=== PATIENT | female | born 1975 | race Caucasian/White ===

== ENCOUNTER 2022-12-31 14:08 | Inpatient (IN) | payer BC, SELFPAY ==
[2022-12-31] VITALS (40 sets, daily range): BP systolic 120–224; BP diastolic 78–163; PULSE 84–113; RESP 11–23; TEMP 36.4–36.6; O2SAT 81–100; BMI 29.3
--- NOTE | ~2022-12-31 | CT_ITS ---
EXAMINATION: CT lumbar spine wo con DATE: 01/01/2023 20:30 INDICATION: PAIN . TECHNIQUE: Computed tomography (CT) of the lumbar spine was performed without intravenous contrast. A utomated exposure control and iterative reconstruction technique were employed. The dose-length produ ct was 1655.27 mGy-cm. COMPARISON: None. FINDINGS: Mild lumbar scoliosis. 5 nonrib-bearing lumbar-type vertebral bodies. Pedicles intact. 3 mm anterolisthesis at L4-5, otherwise normal vertebral body alignment. Vertebral body heights preserved . Multilevel disc space narrowing and marginal osteophytosis, multilevel vacuum phenomenon, and signi ficant endplate sclerosis at L3-4 and L5-S1. Multilevel facet sclerosis and hypertrophy in the lower lumbar spine. Severe bilateral neural foraminal narrowing at L5-S1. Severe central canal narrowing at L2-3 and L3-4. IMPRESSION: No acute fracture or traumatic malalignment in the lumbar spine. Severe central canal narrowing at L2 -3 and L3-4. Severe bilateral neural foraminal narrowing at L5-S1. Multilevel severe degenerative dis c disease. Moderate lower lumbar facet arthropathy. Reviewed, dictated and finalized at location K. IMPRESSION: No acute fracture or traumatic malalignment in the lumbar spine. Severe central canal narrowing at L2-3 and L3-4. Severe bilateral neural foraminal narrowing at L5-S1. Multilevel severe degenerative disc disease. Moderate lower lumbar fa cet arthropathy.
--- NOTE | ~2022-12-31 | CT_ITS ---
EXAMINATION: CTA chest abdomen pelvis DATE: 12/31/2022 14:40 INDICATION: Chest and abdominal pain. TECHNIQUE: Computed tomographic angiography (CTA) of the chest, abdomen, and pelvis was performed wit h 100 mL Omnipaque-350 intravenous contrast. Automated exposure control and iterative reconstruction technique were employed. The dose-length product was 1655.27 mGy-cm. Maximum intensity projection 3D- reconstructions of the aorta and other arteries were constructed by the technologist on a separate wo rkstation. COMPARISON: CT abdomen and pelvis 06/16/2017 FINDINGS: CHEST CTA: The lungs demonstrate smooth septal thickening, consistent with mild pulmonary edema. There is mild a telectasis bilaterally. There is mild scarring in paraspinal right lower lobe. No pleural effusion. T here are nodules in the thyroid measuring up to 2.5 cm on the right. There is left atrial enlargement of the heart. There are coronary artery calcifications. No pericardial effusion. There is a small sl iding hiatal hernia. There is mild aortic atherosclerosis. There is ectasia of ascending aorta measur ing 4.5 cm. No dissection. There is mild thoracic spondylosis. ABDOMEN AND PELVIS CTA: There is pneumobilia in left hepatic lobe, likely secondary to sphincterotomy. There are changes of c holecystectomy. The spleen is normal. Pancreas divisum is noted. The adrenal glands are normal. There are cysts in the kidneys measuring up to 22 mm on the left. There are no dilated loops of bowel. The appendix is normal. There is a left supraumbilical ventral hernia containing fat. There are no patho logically enlarged lymph nodes. There is no free intraperitoneal fluid. There is moderate stenosis of celiac axis secondary to median arcuate ligament compression. There is no significant stenosis of leigh perior mesenteric artery, the renal arteries, or inferior mesenteric artery. There is mild aortic ath erosclerosis. No aneurysm or dissection. There is severe lumbar spondylosis. IMPRESSION: 1. Mild pulmonary edema. 2. Ectasia of ascending aorta measuring 4.5 cm. 3. Left supraumbilical ventral hernia containing fat. Reviewed, dictated and finalized at location A.
--- NOTE | ~2022-12-31 | XR_ITS ---
EXAMINATION: XR shoulder RT min 2V INDICATION: Shoulder pain TECHNIQUE: Four views of the right shoulder are submitted. COMPARISON: None FINDINGS: Normal alignment. No fracture. There is mild osteoarthritis of the acromioclavicular and gl enohumeral joints. Soft tissues are unremarkable. Pulmonary edema is noted. IMPRESSION: 1. Mild osteoarthritis without acute osseous abnormality. Reviewed, dictated and finalized at location F.
--- NOTE | ~2022-12-31 | XR_ITS ---
XR chest 1V portable DATE: 12/31/2022 14:49 INDICATION: Chest pain, shortness of breath TECHNIQUE: 2 portable supine AP views on 12/31/2022 at 1446 hours COMPARISON: 12/31/2022 CTA chest abdomen FINDINGS: There is pulmonary vascular redistribution. There are central pulmonary infiltrates, partic ularly in the upper lobes, suggesting pulmonary edema. Sunitha B-lines are noted, consistent with pulm onary interstitial edema. Heart size appears within normal range. No pleural effusion or pneumothorax is detected. IMPRESSION: Pulmonary vascular redistribution, pulmonary edema Reviewed, dictated and finalized at location B.
--- NOTE | ~2022-12-31 | CT_ITS ---
EXAMINATION: CT cervical spine wo con DATE: 01/01/2023 17:02 INDICATION: Neck pain TECHNIQUE: Computed tomography (CT) of the cervical spine was performed without intravenous contrast. Automated exposure control and iterative reconstruction technique were employed. The dose-length pro duct was 470.32 mGy-cm. COMPARISON: CTA chest abdomen pelvis. FINDINGS: Vertebral Body Alignment: Trace anterolisthesis at C3-4. . Craniocervical and atlantoaxial alignment: Moderate degenerative change. Alignment intact. Osseous structures/fracture: No evidence of a lytic or blastic process in the visualized spine. No e vidence of acute fracture. . Cervical soft tissues: The paraspinal soft tissues planes are maintained. Thyroid nodules. Septal thi ckening in the lung apices. Degenerative changes: Multilevel disc space narrowing and marginal osteophytosis, moderate at C4-5 an d C5-6. Mild right neural foraminal narrowing at C5-6. Mild central canal narrowing at C4-5. Multilev el facet hypertrophy and sclerosis. IMPRESSION: No acute fracture or traumatic malalignment in the cervical spine. Cervical spondylosis. Multilevel m ild facet arthropathy. Reviewed, dictated and finalized at location K. IMPRESSION: No acute fracture or traumatic malalignment in the cervical spine. Cervical spo ndylosis. Multilevel mild facet arthropathy.
--- NOTE | 2022-12-31 14:14 | ECG_ITS ---
Measurements Intervals [place] Rate: 96 P: 12 NC: 177 QRS: -55 QRSD: 125 T: 32 QT: 364 QTc: 461 Interpretive Statements SINUS RHYTHM LEFT ANTERIOR FASCICULAR BLOCK POSSIBLE LEFT VENTRICULAR HYPERTROPHY INFERIOR INFARCT, AGE INDETERMINATE BASELINE ARTIFACT- I, III, AVR, AVL ABNORMAL ECG NO PREVIOUS ECG AVAILABLE FOR COMPARISON Electronically Signed On 12-31-2022 15:00:01 CDT by Jairo Molina D.O.
--- NOTE | 2022-12-31 14:29 | ED.CHESTPAIN ---
HPI - Chest Pain General Chief Complaint: Chest Pain Stated Complaint: right side chest to waist pain Time Seen by Provider: 12/31/22 14:14 History of Present Illness HPI narrative: 47-year-old female history of hypertension, CAD with multiple stents, diabetes, and hyperlipidemia presents to the emergency room via EMS for multiple complaints. Patient states she woke up this morning not feeling well, citing that she was nauseated and began experiencing right-sided chest pain that radiated up into her neck. Describes the pain as a sharp and stabbing pain, feels like somebody is tearing her insides. Patient also endorses left chest pain that is aggravated with movement and palpation. Patient denies recent illness. 325 mg of aspirin were given prior to arrival. Patient also reports history of spinal stenosis for which she takes Percocet for Related Data Home Medications Medication Instructions Recorded Confirmed carvedilol 25 mg tablet 25 mg PO BID 07/09/21 04/01/22 clopidogrel 75 mg tablet 75 mg PO DAILY 07/09/21 04/01/22 lisinopril 40 mg tablet 40 mg PO DAILY 07/09/21 04/01/22 empagliflozin 10 mg tablet 10 mg PO DAILY 02/02/22 04/01/22 (Jardiance) atorvastatin 80 mg tablet 80 mg PO DAILY 03/16/22 04/01/22 cholecalciferol (vitamin D3) 1,250 1,250 mcg PO WEEKLY 03/16/22 04/01/22 mcg (50,000 unit) capsule aspirin 81 mg tablet,delayed 81 mg PO DAILY 04/01/22 04/01/22 release (Adult Low Dose Aspirin) Allergies Allergy/AdvReac Type Severity Reaction Status Date / Time morphine Allergy Mild Nausea and Verified 04/01/22 15:20 Vomiting latex Allergy Unknown Itchy Verified 04/01/22 15:20 OXYCODONE HCL Allergy Unknown Itchy Uncoded 04/01/22 15:20 Review of Systems Review of Systems: CONSTITUTIONAL: Denies fever, chills, or sweats. EYES: Denies visual changes, redness, or discharge. ENT: Denies rhinorrhea, congestion, sore throat, or otalgia. CARDIOVASCULAR: Per HPI reports chest pain RESPIRATORY: Denies cough or dyspnea. GASTROINTESTINAL: Per HPI reports nausea vomiting GENITOURINARY: Denies dysuria or hematuria. SKIN: Denies rash or itching. MUSCULOSKELETAL: Denies back pain, joint pain, or myalgia. NEUROLOGIC: Denies headache, numbness, dizziness, or weakness. PSYCHIATRIC: Denies anxiety or depression. [facility] Past Medical History Medical History Anxiety Arthritis CAD (coronary artery disease) Chest pain Crying Diabetes Difficulty breathing Difficulty sleeping Heartburn History of heart attack Hot flashes HTN (hypertension) Irritable Joint pain Leg pain Numbness Palpitations Pilonidal cyst Sadness Seizure disorder Snoring Spinal stenosis Tiredness Urinary incontinence Vomiting Weakness Surgical History Surgical History delivery delivered x 2 H/O excision of mass left thigh 2003 [facility] H/O: hysterectomy 2014 History of angioplasty January 2019 and January 2021 History of dilation and curettage 1992- [facility] Family History Family History Father Alcoholic Lung cancer Hypertension Depression Anxiety Heart disease Mother Alcoholic Hypertension Depression Anxiety Heart disease Sibling Alcoholic Heart disease Grandparent Diabetes mellitus Hypertension Heart disease Grandparent Alcoholic Hypertension Heart disease Social History Social History Social History: caffeine use: 54 oz soda daily Smoking packs per day: 0.5 Smoking cigarettes per day: 10.0 Years smoked: 30 Smoking pack-years: 15.00 Smoking status: Current every day smoker Tobacco type: cigarettes Second hand tobacco smoke exposure: Yes Alcohol intake: never Substance use: current Substance use type: marijuana Other s
[2022-12-31] MEDS: ONDANSETRON INJ 4 MG/2 ML VIAL IV PUSH ×3 (14:30→20:24)
[2022-12-31] MEDS: HYDROmorphone HCL INJ (*CRX) 1 MG/ML SYR IV PUSH ×3 (14:30→23:43)
[2022-12-31] MEDS: SODIUM CHLORIDE 0.9% IV 1,000 ML 999 ML IV CONT (14:30)
[2022-12-31 14:33] LABS: Basophils Percent Auto 0.2 % (0.2-1.2); Eosinophils Absolute Auto 0.1 K/mm3 (0-0.3); Eosinophils Percent Auto 0.8 % (0-4.4); Hematocrit 48.8 % (37.0-47.0); Hemoglobin 16.2 g/dL (12.0-15.0); Immature Granulocyte Absolute 0.06 K/mm3 (0.00-0.031); Immature Granulocyte Percent A 0.5 % (0-0.5); Lymphocytes Absolute Auto 1.73 K/mm3 (0.9-3.2); Lymphocytes Percent Auto 14.6 % (18.3-44.2); Mean Corpuscular HGB Conc 33.2 g/dl (32-36); Mean Corpuscular Hemoglobin 31.1 pg (26-34); Mean Corpuscular Volume 93.7 fl (80-100); Mean Platelet Volume 10.1 fl (7.4-10.4); Monocytes Absolute Auto 0.7 K/mm3 (0.1-0.6); Monocytes Percent Auto 5.6 % (2.6-8.5); Neutrophils Absolute Auto 9.3 K/mm3 (1.3-6.7); Neutrophils Percent Auto 78.3 % (45.5-73.1); Platelet Count Result 275 k/mm3 (150-375); Red Blood Count 5.21 M/mm3 (4.2-5.4); Red Cell Distribution Width 13.1 % (11.5-14.5); White Blood Count 11.9 K/mm3 (4.5-10.0)
[2022-12-31 14:34] LABS: Estimated CRCL calculation 98 ml/min; Estimated Glomerular Filt Rate > 60
[2022-12-31 14:49] LABS: Prothrombin Time 12.7 Seconds (11.1-14.7)
[2022-12-31 14:50] LABS: Partial Thromboplastin Time 31.1 SECONDS (22.3-36.8)
--- NOTE | 2022-12-31 14:58 | ECG_ITS ---
Measurements Intervals [place] Rate: 107 P: 43 RI: 140 QRS: -53 QRSD: 110 T: 72 QT: 347 QTc: 464 Interpretive Statements SINUS TACHYCARDIA POSSIBLE LEFT ATRIAL ENLARGEMENT LEFT ANTERIOR FASCICULAR BLOCK LEFT VENTRICULAR HYPERTROPHY AND ST-T CHANGE INFERIOR INFARCT, AGE INDETERMINATE ABNORMAL ECG COMPARED TO ECG 12/31/2022 14:13:13 SINUS TACHYCARDIA NOW PRESENT Electronically Signed On 12-31-2022 15:00:47 CDT by Jairo Molina D.O.
[2022-12-31] MEDS: LABETALOL HCL INJ 100 MG/20 ML VIAL 20 MG IV PUSH ×3 (15:02→23:41)
[2022-12-31] MEDS: fentaNYL CITRATE INJ (*CRX) 100 MCG/2 ML VIAL 50 MCG IV PUSH ×2 (15:02→16:11)
[2022-12-31] MEDS: NITROGLYCERIN OINTMENT 1 INCH DOSE TRANSDERM (15:04)
[2022-12-31 15:28] LABS: Alveolar/Arterial O2 Gradient 499.9 mmHg; Base Excess ABG -2.6 mEq/l (+/-2.0); Fractional Inspired Oxygen 100 %; HCO3 ABG 24.6 mEq/l (22.0-26.0); Oxygen Content ABG 23.5 %vol (16.0-22.0); Oxygen Saturation ABG 98.9 % (95.0-100.0); Oxyhemoglobin 97.1 % THb (90.0-100.0); PCO2 ABG 51.1 mmHg (35.0-45.0); PO2 FiO2 Ratio Arterial Blood 1.62 %
[2022-12-31 15:30] LABS: Device NON-INVASIVE VENT; Modified Allen's Test Pass; Site Drawn LEFT RADIAL
[2022-12-31 15:32] LABS: Non-Invasive Expiratory Pressure 8 CMH2O; Non-Invasive Inspiratory Pressure 16 CMH2O; Non-Invasive Vent Rate 4 /MIN
[2022-12-31] MEDS: diazePAM INJ (*CRX) 10 MG/2 ML SYRINGE 5 MG IV PUSH (15:36)
[2022-12-31 15:54] LABS: Alanine Aminotransferase 18 U/L (6-35); Albumin Level 4.3 g/dL (3.5-5.1); Alkaline Phosphatase 120 U/L (38-126); Anion Gap 11 mmol/L (8-16); Aspartate Amino Transferase 21 U/L (14-36); Bilirubin,Total 0.6 mg/dL (0.2-1.3); Blood Urea Nitrogen 8 mg/dL (7-17); Calcium 8.3 mg/dL (8.4-10.2); Carbon Dioxide 22 mmol/L (22-30); Chloride 105 mmol/L (98-107); Estimated CRCL calculation 113 ml/min; Estimated Glomerular Filt Rate > 60; Glucose 232 mg/dL (65-110); Lipase 93 U/L (23-300); Potassium 4.2 mmol/L (3.4-5.0); Sodium 138 mmol/L (137-145)
[2022-12-31] MEDS: FUROSEMIDE INJ 40 MG/4 ML VIAL IV PUSH (16:03)
[2022-12-31 16:05] LABS: Troponin I < 0.012 ng/mL (0.000-0.034)
[2022-12-31 16:14] LABS: Lactic Acid Reflex 0.9 mmol/L (0.7-2.0)
[2022-12-31 16:30] LABS: NT Pro B Type Natriuretic Pept 1080 pg/mL (19.9-100)
[2022-12-31 16:47] LABS: Appearance Urine Clear (Clear); Bilirubin Urine Negative (Negative); Blood Urine Negative (Negative); Color Urine Yellow (Yellow); Glucose Urine UA 3+ mg/dL (Negative); Ketones Urine Negative (Negative); Leukocyte Esterase Ur Negative LEU/UL (Negative); Nitrate Urine Negative (Negative); Protein Urine Negative (Negative); Specific Grav Ur 1.014 (1.001-1.035); Urobilinogen Urine 0.2 mg/dL (<2.0)
[2022-12-31 16:50] LABS: Add Urine Microscopic? NO
[2022-12-31 16:59] LABS: Amphetamine Screen Urine Negative (Negative); Barbiturate Screen Urine Negative (Negative); Benzodiazepines Screen Urine Negative (Negative); Cannabinoid Screen Urine Positive (Negative); Cocaine Screen Urine Negative (Negative); Methadone Screen Urine Negative (Negative); Opiate Screen Urine Negative (Negative); Phencyclidine Screen Urine Negative (Negative)
[2022-12-31] MEDS: PROMETHAZINE HCL 25 MG/ML AMPUL (17:03)
[2022-12-31] MEDS: niCARdipine 20 MG/200 ML 20 MG/200 ML BAG 50 MG IV CONT (17:04)
[2022-12-31] MEDS: HYDROmorphone HCL INJ (*CRX) 1 MG/ML SYR 0.5 MG IV PUSH ×2 (17:10→20:12)
[2022-12-31 17:20] LABS: Glucose Point of Care 247 mg/dl (65-105)
[2022-12-31 17:29] LABS: Troponin I < 0.012 ng/mL (0.000-0.034)
--- NOTE | 2022-12-31 17:35 | PM.IMHP ---
H&P: HPI History of Present Illness Date/Time: 12/31/22 17:35 Chief Complaint: Pain Narrative: This is [age]-year-old female patient has a history of hypertension and coronary artery disease with stents. She also has diabetes and hyperlipidemia. The patient came to the emergency room via EMS with multiple complaints. The patient will cope this morning she was nauseated. The patient was having right-sided chest pain that went down her arm and radiated to her neck. She had sharp stabbing pain. She felt like something was tearing her inside. The patient is on Plavix at home. She received 325 mg of aspirin prior to arrival to the emergency room. The patient has spinal stenosis and takes pain medication. However her drugs tox screen was only positive for benzos. Her white count 11.9. H&H is 16.2 and 48.8. Her D-dimer was found to be 0.70. ABGs pH 7.30 CO2 was 51.1 PO2 was 162.0. The patient initially was placed on a BiPAP machine 10/8 50%. Patient became agitated and wanted ice chips. She pulled off her BiPAP. She was then placed on oxygen at 2 L per nasal cannula. The patient became very agitated and her blood pressure went up to 209/132. The patient was given multiple medications in the emergency room she was given Valium, IV Lasix, fentanyl, Zofran, Dilaudid, and labetalol. The patient come down and her blood pressure came down to 120/78 after she had been on the nicardipine drip. The financial services auditor has been notified. In agreed to the consult. Once the patient got up to ICU her blood pressure was normal and she was taken off the nicardipine drip. Patient began to be restless and was thrashing around in the bed. Her blood pressure became elevated again and she was complaining of some discomfort. Her chest abdomen pelvis CTA was read as mild pulmonary edema, ectasias of ascending aorta measuring 4.5 cm left supraumbilical ventral hernia containing fat. Chest x-ray was read as pulmonary vascular redistribution pulmonary edema. Right shoulder x-ray shows mild osteoarthrosis without acute osseous abnormality. Her blood sugar was in the 200s. Troponin was negative x2. BNP 1080. EKG was read as sinus tachycardia passable left atrial enlargement. The patient is being admitted to observation status on the date of service of 12/31/2022. Review of Systems Review of Systems: All systems reviewed & are unremarkable except as noted in HPI and below Constitutional: Constitutional: Reports as per HPI and Reports no additional constitutional complaints Eyes: Eyes: Reports as per HPI and Reports no additional eye complaints ENT: Reports system reviewed and no additional complaints, except as documented and Reports Normal hearing present Cardiovascular: Cardiovascular: Reports no additional cardiovascular complaints Respiratory: Respiratory: Reports no additional respiratory complaints and Reports no additional respiratory complaints Gastrointestinal: Gastrointestinal: Reports as per HPI and Reports no additional gastrointestinal complaints Musculoskeletal: Musculoskeletal: Reports no additional musculoskeletal complaints Integumentary/Breasts: Skin/Breast: Reports system reviewed and no additional complaints, except as docu and Reports as per HPI Neurologic: Reports system reviewed and no additional complaints, except as documented, Reports as per HPI and Reports Normal hearing present Psychiatric: Psychiatric: Reports no additional psychiatric complaints and Reports as per HPI Endocrine: Endocrine: Reports no additional endocrine complaints Hematologic/Lymphatic: Hematologic/Lymphatic: Reports no additional hematologic/lymphatic complaints Allergic/Immunologic: Allergic/Immunologic: Reports no additional allergic/immunologic complaints [facility] Past Medical History Medical History Anxiety Arthritis CAD (coronary artery disease) Chest pain CHF (congestive heart failure), NYHA class
--- NOTE | 2022-12-31 18:41 | PC.NURSE ---
1804- Pt took BIPAP off, Siddharth LEES at bedside, aware. Pt requesting ice chips, given to pt by Siddharth Santiago. Pt placed on 2LNC by Siddharth Santiago. RN called to bedside, pt requesting to leave ama. Dr. Manjarrez to bedside to discuss risks of leaving ama. Pt decided to stay for ICU admission at this time.
--- NOTE | 2022-12-31 18:45 | ADMGEN ---
This patient, Consuelo Calix, was admitted to Intensive Care Unit-4 at 1830. Patient/family oriented to hospital policies and general routines including ID bracelet, bed and alarms, visiting hours, pain management, procedures, bathroom and other care routines, personal items, smoking policy, room service/diet, and visiting hours. Information on how to activate the Rapid Response Team has been discussed. Patient/Family are encouraged to report perceived risks to care and to ask questions if they do not understand what they are told or what they should do.
--- NOTE | 2022-12-31 19:06 | PCRCNOTE ---
183 PT. WAS TRANSPORTED BY Lm FRANCO AND Lm NICHOLSON TO THE ICU ON A NASAL CANNULA AFTER PT. RIPPED OFF BIPAP MASK.
[2022-12-31 20:20] LABS: Troponin I < 0.012 ng/mL (0.000-0.034)
[2022-12-31 20:29] LABS: Glucose Point of Care 239 mg/dl (65-105)
[2022-12-31] MEDS: ALPRAZolam (*CRX) 0.25 MG TABLET 0.75 MG PO (20:38)
[2022-12-31] MEDS: lisinopriL 20 MG TABLET 40 MG PO (22:05)
[2022-12-31] MEDS: carvediloL 25 MG TABLET PO (22:06)
[2022-12-31] MEDS: ROSUVASTATIN 10 MG TABLET PO (22:09)
[2022-12-31] MEDS: CYCLOBENZAPRINE HCL 10 MG TABLET PO (22:09)
[2022-12-31] MEDS: ALPRAZolam (*CRX) 0.25 MG TABLET PO (22:50)
[2023-01-01] VITALS (14 sets, daily range): BP systolic 95–164; BP diastolic 60–108; PULSE 63–82; RESP 12–19; TEMP 36.4–36.7; O2SAT 91–100; BMI 29.3
--- NOTE | 2023-01-01 | ECHO_ITS ---
Patient Info Name: Consuelo Calix Age: 47 years : 1975 Gender: Female Ht: 68 in Wt: 192 lbs BSA: 2.07 m2 HR: 69 bpm BP: 95 / 70 mmHg Technical Quality: Good Exam Date: 01/01/2023 10:22 AM Exam Location: [facility] Patient Status: Inpatient Admit Date: 12/31/2022 Staff Ordering Physician: Paula Santiago NP [place] Facilitator: Dede Corrales RDCS Attending Provider: Carlos Pratt MD Referring Physician: Jack AGUSTIN; Exam Type: CA echo doppler color flow Study Info Indications J81.0 - Acute pulmonary edema Complete two-dimensional, color flow and Doppler transthoracic echocardiogram is performed. Summary 1. Complete two-dimensional, color flow and Doppler transthoracic echocardiogram is performed. 2. Borderline LV enlargement, mild LVH. Normal LV systolic function, ejection fraction about 65%; diastolic dysfunction is present. Mild left atrial enlargement. Normal mitral valve structure, mild mitral regurgitation. Normal aortic valve structure, no hemodynamically significant stenosis; mild aortic regurgitation. Unable to assess RVSP due to inadequate TR jet. Sinus rhythm. Left Ventricle Left ventricular chamber dimension is mildly enlarged. Left ventricular systolic function is normal, estimated at 65-70%. There is mildly increased left ventricular wall thickness. The left ventricular diastolic function is abnormal. Right Ventricle Right ventricular chamber dimension is normal. Right ventricular systolic function is normal. Left Atria Left atrial chamber dimension is mildly enlarged. Right Atria Right atrial chamber dimension is normal. Aortic Valve The aortic valve is normal. There is no aortic valve stenosis. There is mild aortic valve regurgitation. Pulmonic Valve The pulmonic valve is not well visualized. Mitral Valve The mitral valve has thickened leaflets. There is mild mitral valve regurgitation. Tricuspid Valve The tricuspid valve leaflets are normal. Pericardium/Pleural The pericardium appears normal. Aorta The aortic root size at the sinus of Valsalva is normal. Left Ventricular Outflow Tract Name Value Normal LVOT 2D LVOT Diameter 2.3 cm LVOT Doppler LVOT Peak Gradient 3 mmHg LVOT Mean Gradient 2 mmHg LVOT VTI 19 cm LVOT VTI/AV VTI Ratio 0.7 LVOT Stroke Volume 80 ml LVOT CO 6.0 l/min LVOT CI 2.9 l/min/m2 Pulmonic Valve Name Value Normal PV Doppler PV Peak Gradient 2 mmHg Mitral Valve Name Value Normal
[2023-01-01 00:07] LABS: Troponin I < 0.012 ng/mL (0.000-0.034)
[2023-01-01] MEDS: ZOLPIDEM TARTRATE (*CRX) 5 MG TABLET 10 MG PO (00:54)
[2023-01-01] MEDS: ONDANSETRON INJ 4 MG/2 ML VIAL IV PUSH (00:55)
[2023-01-01 01:07] LABS: Glucose Point of Care 193 mg/dl (65-105)
[2023-01-01] MEDS: HYDROmorphone HCL INJ (*CRX) 1 MG/ML SYR IV PUSH ×5 (02:52→17:46)
[2023-01-01 05:42] LABS: Basophils Absolute Auto 0.1 K/mm3 (0.0-0.1); Basophils Percent Auto 0.4 % (0.2-1.2); Eosinophils Percent Auto 0.1 % (0-4.4); Hematocrit 48.4 % (37.0-47.0); Hemoglobin 15.7 g/dL (12.0-15.0); Immature Granulocyte Absolute 0.06 K/mm3 (0.00-0.031); Immature Granulocyte Percent A 0.4 % (0-0.5); Lymphocytes Absolute Auto 2.34 K/mm3 (0.9-3.2); Lymphocytes Percent Auto 17.4 % (18.3-44.2); Mean Corpuscular HGB Conc 32.4 g/dl (32-36); Mean Corpuscular Hemoglobin 31.5 pg (26-34); Mean Corpuscular Volume 97.2 fl (80-100); Mean Platelet Volume 9.5 fl (7.4-10.4); Monocytes Absolute Auto 0.7 K/mm3 (0.1-0.6); Monocytes Percent Auto 5.4 % (2.6-8.5); Neutrophils Absolute Auto 10.3 K/mm3 (1.3-6.7); Neutrophils Percent Auto 76.3 % (45.5-73.1); Platelet Count Result 236 k/mm3 (150-375); Red Blood Count 4.98 M/mm3 (4.2-5.4); Red Cell Distribution Width 13.2 % (11.5-14.5); White Blood Count 13.5 K/mm3 (4.5-10.0)
[2023-01-01 05:52] LABS: Lactic Acid Reflex 3.7 mmol/L (0.7-2.0)
[2023-01-01 05:56] LABS: Alanine Aminotransferase 20 U/L (6-35); Albumin Level 4.9 g/dL (3.5-5.1); Alkaline Phosphatase 98 U/L (38-126); Anion Gap 12 mmol/L (8-16); Aspartate Amino Transferase 20 U/L (14-36); Bilirubin,Total 0.7 mg/dL (0.2-1.3); Blood Urea Nitrogen 8 mg/dL (7-17); CRP 0.7 mg/dL (<1.0); Calcium 8.7 mg/dL (8.4-10.2); Carbon Dioxide 28 mmol/L (22-30); Chloride 102 mmol/L (98-107); Creatine Kinase 85 U/L (30-135); Estimated CRCL calculation 99 ml/min; Estimated Glomerular Filt Rate > 60; Glucose 175 mg/dL (65-110); Lipase 694 U/L (23-300); Magnesium 2.4 mg/dL (1.6-2.3); Potassium 4.1 mmol/L (3.4-5.0); Sodium 142 mmol/L (137-145)
[2023-01-01 06:27] LABS: Thyroid Stimulating Hormone Reflex 0.399 uIU/mL (0.465-4.68)
[2023-01-01 08:39] LABS: Reflex Lactic Acid Yes or No Add Lactic
[2023-01-01] MEDS: lisinopriL 20 MG TABLET 40 MG PO (09:21)
[2023-01-01] MEDS: ASPIRIN 81 MG ENTERIC TABLET PO (09:21)
[2023-01-01] MEDS: EMPAGLIFLOZIN 10 MG TABLET PO (09:22)
[2023-01-01] MEDS: ENOXAPARIN 40 MG/0.4 ML SYRINGE SUB-Q (09:22)
[2023-01-01] MEDS: FUROSEMIDE INJ 40 MG/4 ML VIAL 20 MG IV PUSH (09:22)
[2023-01-01] MEDS: ALPRAZolam (*CRX) 0.25 MG TABLET PO ×3 (09:25→17:45)
[2023-01-01 09:44] LABS: Glucose Point of Care 109 mg/dl (65-105)
[2023-01-01 09:47] LABS: Lactic Acid 2.6 mmol/L (0.7-2.0)
--- NOTE | 2023-01-01 09:47 | WPDCNINT ---
Assessment and Plan Assessment and plan (1) Hypertensive emergency: Code(s): I16.1 - Hypertensive emergency Status: Acute Assessment and Plan: Patient was started on nicardipine infusion which has been now weaned off Continue lisinopril and Coreg P.r.n. labetalol (2) Acute respiratory failure: Code(s): J96.00 - Acute respiratory failure, unspecified whether with hypoxia or hypercapnia Status: Acute Assessment and Plan: Secondary to pulmonary edema and COPD Now improved and on room air Lasix to be continued Bronchodilators ABG and chest x-ray reviewed Echo ordered (3) CHF (congestive heart failure), NYHA class I: Code(s): I50.9 - Heart failure, unspecified Status: Acute Assessment and Plan: Elevated BNP and CT shows pulmonary edema Check echo Lasix IV ordered On Jardiance (4) Pulmonary edema: Code(s): J81.1 - Chronic pulmonary edema Status: Acute Assessment and Plan: See above (5) Abnormal TSH: Code(s): R79.89 - Other specified abnormal findings of blood chemistry Status: Acute Assessment and Plan: TSH is low free T4 level is pending (6) Elevated lipase: Code(s): R74.8 - Abnormal levels of other serum enzymes Status: Acute Assessment and Plan: Lipase elevated No signs of pancreatic inflammation on the CT Patient currently denies any abdominal pain at this time was able to tolerate p.o. breakfast She does not have gallbladder and denies any alcohol use. States she has a history of pancreatitis in the past and has had multiple ERCPs Will try to obtain records from [facility] Check triglyceride level (7) CAD (coronary artery disease): Code(s): I25.10 - Atherosclerotic heart disease of [place] coronary artery without angina pectoris Status: Acute Assessment and Plan: EKG reviewed troponin x3 negative Continue aspirin, ELVIA-inhibitor beta-rosa and statin Check echo (8) Hyperlipidemia: Code(s): E78.5 - Hyperlipidemia, unspecified Status: Acute Assessment and Plan: Continue rosuvastatin (9) Cervical spondylosis with radiculopathy: Code(s): M47.22 - Other spondylosis with radiculopathy, cervical region Status: Acute Assessment and Plan: Patient states she was diagnosed with cervical spondylosis 2 months ago now is pain which starts in the neck and radiates to her shoulder and her right flank. Pain is worse with movement of neck She states she had imaging done [facility] 2 months ago which is not sure whether was a CT scan or an MRI. I will obtain a CT C spine at this time and try to obtain records from [facility] see whether patient had MRI. Continue pain control and muscle relaxant No neurological deficit on exam Plan DVT prophylaxis -Lovenox Stress ulcer prophylaxis - Nutrition -diet ordered Code Status - Full Code Incentive spirometry, PT OT Transfer out of ICU today Systems Analyst Engineer Consult Note Consult date: 01/01/23 Reason for consult: Hypertensive emergency HPI: Consuelo Calix is a 47 year old female with a past medical history of hypertension and coronary artery disease with stents, diabetes and hyperlipidemia.? The patient presented to the emergency room yesterday via EMS with multiple complaints including a right-sided chest pain that went down her arm and radiated to her neck.? She had sharp stabbing pain.? She felt like something was tearing her inside.? The patient is on Plavix at home.? She received 325 mg of aspirin prior to arrival to the emergency room.? The patient has spinal stenosis and takes pain medication.? However her drugs tox screen was only positive for benzos.? Workup in ED showed her white count 11.9.? H&H is 16.2 and 48.8.? Her D-dimer was found to be 0.70.? ABGs pH 7.30 CO2 was 51.1 PO2 was 162.0.? The patient initially was placed on a BiPAP machine 10/8 50% which was later we
[2023-01-01 10:26] LABS: Free T4 Free Thyroxine Reflex 1.05 ng/dL (0.78-2.19)
[2023-01-01] MEDS: CYCLOBENZAPRINE HCL 10 MG TABLET PO ×2 (11:22→17:56)
--- NOTE | 2023-01-01 11:48 | PC.NURSE ---
Multiple attempts made to administer patients ordered coreg 12.5 mg PO. Patient refusing stating she has had syncopal episodes in the past on this medication. Patient educated on risks of not taking prescribed medication. MD Brown updated and made aware.
[2023-01-01 12:39] LABS: Glucose Point of Care 131 mg/dl (65-105)
[2023-01-01 13:10] LABS: Total Triiodothyronine (T3) 1.27 NG/ML (0.97-1.69)
--- NOTE | 2023-01-01 15:35 | PM.IMPN ---
Progress Note: A&P Assessment and Plan (1) CHF (congestive heart failure), NYHA class I: Code(s): I50.9 - Heart failure, unspecified Status: Acute Assessment and Plan: An echo has been ordered IV Lasix Continue Jardiance 01/01/2023 interval history: Patient states is feeling little better the pain is currently however patient does have a long history of neck and back pain pain cervical and lumbar spine scan showed multilevel severe degenerative disc disease, discussed with neurosurgery review of this care and recommended patient follow-up as outpatient, patient blood pressure is trending down, will continue to monitor will have a PT OT evaluate the patient and further recommendation to follow. (2) RITIKA and COPD overlap syndrome: Code(s): G47.33 - Obstructive sleep apnea (adult) (pediatric); J44.9 - Chronic obstructive pulmonary disease, unspecified Status: Acute Assessment and Plan: Continue with CPAP/BiPAP as per home setting (3) Tobacco abuse: Code(s): Z72.0 - Tobacco use Status: Acute Assessment and Plan: Discussed smoking cessation for approximately 5 minutes. (4) HTN (hypertension): Code(s): I10 - Essential (primary) hypertension Status: Acute Assessment and Plan: Patient was on nicardipine drip and that was D.C.. Now patient is on p.r.n. labetalol. Patient may be hypertensive due to withdrawals from benzodiazepines. Patient's toxicology screen was positive for benzodiazepines and negative for narcotics. Continue with lisinopril (5) CAD (coronary artery disease): Code(s): I25.10 - Atherosclerotic heart disease of kake coronary artery without angina pectoris Status: Acute Assessment and Plan: Continue with aspirin and Plavix (6) Hyperlipidemia: Code(s): E78.5 - Hyperlipidemia, unspecified Status: Acute Assessment and Plan: Continue with Crestor (7) Diabetes: Code(s): E11.9 - Type 2 diabetes mellitus without complications Status: Acute Assessment and Plan: Accu-Cheks AC and HS with sliding scale insulin and hypoglycemic protocol Check A1c Patient is on jardiance (8) Depression: Code(s): F32.A - Depression, unspecified Status: Acute Assessment and Plan: Continue with current treatment (9) Chronic pain: Code(s): G89.29 - Other chronic pain Status: Acute Assessment and Plan: According to patient's external med reconciliation the patient has been prescribed hydrocodone and xanax. However the patient's drug toxicology screen only shows the benzodiazepine. Continue with Xanax Continue with Flexeril The patient was complaining of right shoulder and right chest pain. Her cardiac enzymes were monitored and they were negative x2. Subjective Date/time seen: 01/01/23 15:35 Pain HPI-Narrative: This is [age]-year-old female patient has a history of hypertension and coronary artery disease with stents.? She also has diabetes and hyperlipidemia.? The patient came to the emergency room via EMS with multiple complaints.? The patient will cope this morning she was nauseated.? The patient was having right-sided chest pain that went down her arm and radiated to her neck.? She had sharp stabbing pain.? She felt like something was tearing her inside.? The patient is on Plavix at home.? She received 325 mg of aspirin prior to arrival to the emergency room.? The patient has spinal stenosis and takes pain medication.? However her drugs tox screen was only positive for benzos.? Her white count 11.9.? H&H is 16.2 and 48.8.? Her D-dimer was found to be 0.70.? ABGs pH 7.30 CO2 was 51.1 PO2 was 162.0.? The patient initially was placed on a BiPAP machine 10/8 50%.? Patient became agitated and wanted ice chips.? She pulled off her BiPAP.? She was then placed on oxygen at 2 L per nasal cannula.? The patient became very agitated and her blood pressure went up to 209/132.? The patient was g
[2023-01-01 18:05] LABS: Glucose Point of Care 109 mg/dl (65-105)
--- NOTE | 2023-01-01 20:04 | PC.NURSE ---
Patient requested meal tray. I checked with Terese GOULD and she had called multiple times with none delivered. I offered her alternatives from the fridge and she refused. Patient was upset and verbalized that she wanted to sign out AMA. I returned with warning coordination meteorologistBRYANNA Jade and VINNY papers. Patient became tearful and belligerent. Stated that she wasn't signing out AMA and that we were trying to kick her out. She had a tearful episode last night at shift change as well. Patient is refusing bipap and other interventions. Still reports severe pain every 3 hours but insists that the dilaudid is effective for her pain. Educated patient on glucose monitoring and control with diet choices but states that it won't change my blood sugar to drink sodas.
--- NOTE | 2023-01-01 20:04 | PC.NURSE ---
1914 informed by Consuelo GOULD that patent is wanting to leave AMA. Patient has threatened several times to leave AMA throughout stay and displays manipulative behavior. Patient frequently refuses medications and pits nurses against one another. Printed out AMA form and brought to patient and handed it to her. Explained she needs to sign the AMA form and I will take the equipment off her. Patient got tearful and stated she doesn't want to leave but she has been starved all day except for little bits to eat. I explained if she wants to leave she needs to sign the form and go. I was told I was rude and why do I care if she leaves. Explained we want to take care of her but she can not threaten to leave every time she doesn't get something she wants. If she is going to stay she needs to work with us. Patient rolls her eyes and states yeah, Im the problem and again complains about the food. She received a breakfast and dinner tray but still states she has not eaten all day and then says she didn't get a dinner tray. She did not get a tray delivered, although Terese Storey RN did try to reach the kitchen and offered the patient a turkey sandwich tray. Patient states her stomach cannot tolerate turkey. Explained I can try to find her something else but this is a hospital and we have limited resources. Patient stated that she was also told she would move to another floor because she was downgraded to [employer] and thinks they will have more to eat. Explained we had not received a room yet because sometimes the floors are full so she may stay in this room, and they have the same food we do. Again I was called rude and asked why I care if she threatens to leave AMA. Explained if she cares about her treatment she wont threaten to leave AMA over food. Patient states she was just thinking about it. Told the patient I will leave the form with her, my name was Kalie, and I will have Holly the repair department supervisor speak to her. Found a ham sandwich and a frozen spaghetti dinner and offered it to patient. She declines both.
--- NOTE | 2023-01-01 22:01 | PC.NURSE ---
Patient signed out AMA and left at 2100. She was educated on the risks involved in that decision.
--- NOTE | 2023-01-02 15:41 | PM.DS ---
DS: Admitting Diagnosis Discharge Date 01/01/23 Admitting Diagnosis Pain DS: Summary Hospital Course Hospital Course: ?Patient states is feeling little better the pain is currently however patient does have a long history of neck and back pain pain cervical and lumbar spine scan showed multilevel severe degenerative disc disease, discussed with neurosurgery review of this care and recommended patient follow-up as outpatient, patient blood pressure is trending down, will continue to monitor will have a PT OT evaluate the patient and further recommendation to follow. Patient left AMA Time Spent with Patient Time attestation: Total time spent providing and/or coordinating discharge services: DS: Data Data Completed and Pending Labs on day of discharge: Labs from last 24 hours 01/01/23 17:58 POC Capillary Glucose 109 H Discharge Plan Discharge Consulting providers: Carlos Pratt ; Paula Santiago ; Joaquim Price ; Jairo Molina ; Wei Galvan ; Mateo Gordon ; Casey Oakley V. Patient Disposition: Left Against Medical Advice Discharge Medications: No Action lisinopril 40 mg tablet 40 mg PO DAILY cholecalciferol (vitamin D3) 1,250 mcg (50,000 unit) capsule 1,250 mcg PO WEEKLY Rx Instructions: Patient takes on tuesday. Jardiance 10 mg tablet 10 mg PO DAILY aspirin [Adult Low Dose Aspirin] 81 mg tablet,delayed release (DR/EC) 81 mg PO DAILY cyclobenzaprine 10 mg tablet 10 mg PO BID alprazolam 0.25 mg tablet 0.25 mg PO TID rosuvastatin 10 mg tablet 10 mg PO HS Date of admission: 12/31/22 16:51 Primary Care Provider: UNKNOWN,DOCTOR Admitting Provider: Fariba Corrales Attending physician on admission: Fariba Corrales Condition: Serious
== END 2023-01-01 21:00 | disposition left against medical advice (07) | DRG 194 ==
LOC: ANHED 16:40 → ANHICU 20:08
PROVIDERS: Internal Medicine; Nurse Practitioner; Admitting Provider Family Medicine; Emergency Provider Nurse Practitioner Family; Visit Provider Family Medicine
DX: I11.0 Hypertensive heart disease with heart failure (principal); E11.9 Type 2 diabetes mellitus without complications; I50.9 Heart failure, unspecified; E78.5 Hyperlipidemia, unspecified; G47.33 Obstructive sleep apnea (adult) (pediatric); J44.9 Chronic obstructive pulmonary disease, unspecified; I25.10 Atherosclerotic heart disease of native coronary artery without angina pectoris; F17.210 Nicotine dependence, cigarettes, uncomplicated; F32.A Depression, unspecified; G89.29 Other chronic pain; Z88.5 Allergy status to narcotic agent; Z91.040 Latex allergy status
CPT/HCPCS: 36415; 36600; 71045; 71275; 72125; 72131; 73030; 74174; 80053; 80307; 81003; 82550; 82805; 82948; 83036; 83605; 83690; 83735; 83880; 84439; 84443; 84480; 84484; 85025; 85380; 85610; 85730; 86140; 93005; 93306; 94002; 96361; 96374; 96375; 96376; 99285; A9270; J1170; J1650; J1940; J2405; J2550; J3010; J3360; J7030; Q9967

== ENCOUNTER 2023-05-07 11:33 | Observation (INO) | payer BC, SELFPAY ==
[2023-05-07] VITALS (28 sets, daily range): BP systolic 141–211; BP diastolic 91–130; PULSE 79–104; RESP 13–28; TEMP 35.8–36.5; O2SAT 89–100; BMI 33.4
--- NOTE | ~2023-05-07 | CT_ITS ---
EXAMINATION: CTA chest abdomen pelvis DATE: 05/07/2023 12:42 INDICATION: Chest pain and vomiting TECHNIQUE: Computed tomographic angiography (CTA) of the chest, abdomen and pelvis was performed with 100 cc of Omnipaque-350 intravenous contrast. Additional 3D reconstructions utilizing rotating maxim um intensity projection (MIP) were performed. Automated exposure control and iterative reconstruction technique were employed. The dose-length product was 1907.54 mGy-cm. COMPARISON: 12/31/2022 FINDINGS: Chest: Diffuse mild groundglass opacities and some peripheral smooth septal line thickening in the bilateral lungs consistent with mild pulmonary edema. No pneumonia, pleural effusion or pneumothorax. Heart si ze is normal. Atherosclerotic coronary artery calcification. No pericardial effusion. Mild fusiform d ilation of the ascending thoracic aorta which measures up to 4.3 x 4.1 cm in maximal diameter. This t apers to normal caliber of 2.9 cm at the aortic arch distal to the takeoff of the left subclavian art thom. No aortic dissection. No pathologically enlarged thoracic lymphadenopathy. Multinodular goiter w ith right thyroid nodule measuring up to 2.3 cm. Mild thoracic spondylosis. Abdomen and pelvis: Unchanged small amount of pneumobilia in the left hepatic lobe likely related to prior cholecystectom y and sphincterotomy with cholecystectomy clips at the gallbladder fossa. Spleen, pancreas and right adrenal gland are normal. Low-density thickening of the left adrenal gland which could be due to adre nal hyperplasia or small adenomas left renal cysts the largest a 2.5 cm exophytic cyst at the lower p ole of the left kidney. Bowels including the appendix are normal. Bladder is distended but otherwise unremarkable. The uterus is not identified and has likely been surgically resected. The cyst at the l eft ovary the largest measuring 2.4 cm in maximal diameter. Small fat-containing left supra umbilical ventral hernia. Mild amount of scattered atherosclerotic plaque in the normal caliber abdominal aort a and bilateral iliac arteries. No aneurysm, dissection or hemodynamically significant stenosis. Mild S-shaped scoliosis of the thoracic and lumbar spine with severe lumbar spondylosis. IMPRESSION: 1. 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 2. Mild pulmonary edema. 3. Small fat-containing left supraumbilical ventral hernia. Reviewed, dictated and finalized at location A. IMPRESSION: 1. Mild fusiform aneurysm of the ascending thoracic aorta measuring up to 4.3 c m, normal caliber more distally with no aortic dissection. 2. Mild pulmonary edema. 3. Small fat-containing left supraumbilical ventral hernia.
--- NOTE | 2023-05-07 11:35 | ECG_ITS ---
Measurements Intervals [place] Rate: 103 P: 0 WA: 128 QRS: -49 QRSD: 115 T: 84 QT: 347 QTc: 455 Interpretive Statements SINUS TACHYCARDIA POSSIBLE RIGHT VENTRICULAR CONDUCTION DELAY [RSR (QR) IN V1/V2] LEFT VENTRICULAR HYPERTROPHY AND ST-T CHANGE [VOLTAGE CRITERIA PLUS ST/T ABNORMALITY] POOR R-WAVE PROGRESSION INFERIOR MYOCARDIAL INFARCTION , OLD, WITH POSTERIOR EXTENSION [40+ ms Q WAVE AND/OR ST/T ABNORMALITY IN II/aV COMPARED TO ECG 12/31/2022 14:56:57 NO SIGNIFICANT CHANGES Electronically Signed On 05-07-2023 15:00:41 CDT by Alondra Christianson M.D.
[2023-05-07 11:50] LABS: Basophils Percent Auto 0.3 % (0.2-1.2); Eosinophils Absolute Auto 0.2 K/mm3 (0-0.3); Eosinophils Percent Auto 1.3 % (0-4.4); Hematocrit 44.7 % (37.0-47.0); Hemoglobin 15.3 g/dL (12.0-15.0); Immature Granulocyte Absolute 0.04 K/mm3 (0.00-0.031); Immature Granulocyte Percent A 0.3 % (0-0.5); Lymphocytes Absolute Auto 3.25 K/mm3 (0.9-3.2); Lymphocytes Percent Auto 27.9 % (18.3-44.2); Mean Corpuscular HGB Conc 34.2 g/dl (32-36); Mean Corpuscular Hemoglobin 31.7 pg (26-34); Mean Corpuscular Volume 92.7 fl (80-100); Mean Platelet Volume 10.6 fl (7.4-10.4); Monocytes Absolute Auto 0.9 K/mm3 (0.1-0.6); Monocytes Percent Auto 7.7 % (2.6-8.5); Neutrophils Absolute Auto 7.3 K/mm3 (1.3-6.7); Neutrophils Percent Auto 62.5 % (45.5-73.1); Platelet Count Result 221 k/mm3 (150-375); Red Blood Count 4.82 M/mm3 (4.2-5.4); White Blood Count 11.6 K/mm3 (4.5-10.0)
[2023-05-07] MEDS: ONDANSETRON INJ 4 MG/2 ML VIAL IV PUSH ×3 (11:51→20:27)
[2023-05-07] MEDS: HYDROmorphone HCL INJ (*CRX) 1 MG/ML SYR 0.5 MG IV PUSH ×3 (11:54→15:20)
[2023-05-07] MEDS: NITROGLYCERIN OINTMENT 1 INCH DOSE TRANSDERM (11:56)
[2023-05-07] MEDS: LORazepam INJ (*CRX) 2 MG/ML VIAL 0.5 MG IV PUSH (11:57)
[2023-05-07] MEDS: ALBUTEROL SULFATE NEB 2.5 MG/3 ML INH 5 MG INHALATION (12:02)
[2023-05-07 12:04] LABS: Alanine Aminotransferase 18 U/L (6-35); Albumin Level 4.3 g/dL (3.5-5.1); Alkaline Phosphatase 100 U/L (38-126); Anion Gap 7 mmol/L (8-16); Aspartate Amino Transferase 23 U/L (14-36); Bilirubin,Total 0.6 mg/dL (0.2-1.3); Blood Urea Nitrogen 6 mg/dL (7-17); Calcium 8.7 mg/dL (8.4-10.2); Carbon Dioxide 22 mmol/L (22-30); Chloride 109 mmol/L (98-107); Estimated CRCL calculation 114 ml/min; Estimated Glomerular Filt Rate > 60; Glucose 163 mg/dL (65-110); Potassium 3.6 mmol/L (3.4-5.0); Sodium 138 mmol/L (137-145)
[2023-05-07 12:13] LABS: Alveolar/Arterial O2 Gradient 209.4 mmHg; Base Excess ABG -2.9 mEq/l (+/-2.0); Carboxyhemoglobin 3.8 % THb (0-2.0); Device NON-INVASIVE VENT; Fractional Inspired Oxygen 45 %; HCO3 ABG 21.5 mEq/l (22.0-26.0); Methemoglobin ABG 0.3 %THb (0-1.5); Modified Allen's Test Pass; Non-Invasive Expiratory Pressure 7 CMH2O; Non-Invasive Inspiratory Pressure 14 CMH2O; Non-Invasive Vent Rate 16 /MIN; Oxygen Content ABG 19.8 %vol (16.0-22.0); Oxyhemoglobin 89.6 % THb (90.0-100.0); PCO2 ABG 36.6 mmHg (35.0-45.0); PO2 ABG 69.8 mmHg (80.0-100.0); PO2 FiO2 Ratio Arterial Blood 1.55 %; Reduced Hemoglobin 6.3 %THb (0-5.0); Site Drawn RIGHT RADIAL; Total Hemoglobin 15.7 g/dL (12.0-18.0); pH ABG 7.387 (7.350-7.450)
[2023-05-07 12:16] LABS: Troponin I < 0.012 ng/mL (0.000-0.034)
--- NOTE | 2023-05-07 12:44 | ED.CHESTPAIN ---
HPI - Chest Pain General Chief Complaint: Chest Pain Stated Complaint: chest pain Time Seen by Provider: 05/07/23 11:43 History of Present Illness HPI narrative: 47-year-old female present emergency department for evaluation of chest pain and increased shortness of breath. Patient does have prior history of RI. Upon arrival to the emergency department patient began complaining of increased difficulty breathing and was also complaining of posterior back pain. Related Data Home Medications Medication Instructions Recorded Confirmed lisinopril 40 mg tablet 40 mg PO DAILY 07/09/21 12/31/22 empagliflozin 10 mg tablet 10 mg PO DAILY 02/02/22 12/31/22 (Jardiance) cholecalciferol (vitamin D3) 1,250 1,250 mcg PO WEEKLY 03/16/22 12/31/22 mcg (50,000 unit) capsule aspirin 81 mg tablet,delayed 81 mg PO DAILY 04/01/22 12/31/22 release (Adult Low Dose Aspirin) alprazolam 0.25 mg tablet 0.25 mg PO TID 12/31/22 12/31/22 cyclobenzaprine 10 mg tablet 10 mg PO BID 12/31/22 12/31/22 rosuvastatin 10 mg tablet 10 mg PO HS 12/31/22 12/31/22 Allergies Allergy/AdvReac Type Severity Reaction Status Date / Time morphine Allergy Mild Nausea and Verified 04/01/22 15:20 Vomiting latex Allergy Unknown Itchy Verified 04/01/22 15:20 OXYCODONE HCL Allergy Unknown Itchy Uncoded 04/01/22 15:20 Review of Systems Review of Systems: All systems reviewed & are unremarkable except as noted in HPI and below PMFSH Past Medical History Medical History (Updated 05/07/23 @ 18:04 by Paula Santiago NP) Anxiety Arthritis CAD (coronary artery disease) Chest pain CHF (congestive heart failure), NYHA class I Crying Diabetes Difficulty breathing Difficulty sleeping Heartburn History of heart attack History of pancreatitis Hot flashes HTN (hypertension) Irritable Irritable bowel Joint pain Leg pain Neurogenic bladder Neuropathy Numbness RITIKA and COPD overlap syndrome Palpitations Pancreatitis Pilonidal cyst Sadness Seizure disorder Snoring Spinal stenosis Tiredness Urinary incontinence Vomiting Weakness Surgical History Surgical History (Updated 05/07/23 @ 18:04 by Paula Santiago NP) delivery delivered x 2 H/O excision of mass left thigh 2003 [facility] H/O: hysterectomy 2015 History of angioplasty January 2019 and January 2021 History of dilation and curettage 1992- [facility] History of ERCP Family History Family History Father Alcoholic Lung cancer Hypertension Depression Anxiety Heart disease Mother Alcoholic Hypertension Depression Anxiety Heart disease Sibling Alcoholic Heart disease Grandparent Diabetes mellitus Hypertension Heart disease Grandparent Alcoholic Hypertension Heart disease Social History Social History (Updated 05/07/23 @ 18:06 by Paula Santiago NP) Social History: caffeine use: 54 oz soda daily. She is . She has 2 children she stated that she works at [employer] . She continues to smoke daily. Code status full code Smoking packs per day: 0.5 Smoking cigarettes per day: 10.0 Years smoked: 40 Smoking pack-years: 20.00 Smoking status: Former smoker Tobacco type: cigarettes Second hand tobacco smoke exposure: Yes Alcohol intake: never Substance use: current Substance use type: marijuana Other substance usage details: marijuana occasionally Last use: 05/06/23 Lack of Transportation: No Lack of Food: Sometimes True Current Housing: I Have Housing Concerned About Future Housing: No Difficulty Paying Gas/Electric Bills: No Difficulty Paying for Meds: No Currently Unemployed: No Education: Trade/Vocational Certificate Difficulty w/ Childcare or Family Care: No Living arrangements: with family Additional living arrangements comments: 3 people in home Occupation/Education: unemployed Spiritual care concer
[2023-05-07 12:57] LABS: NT Pro B Type Natriuretic Pept 840 pg/mL (19.9-100)
[2023-05-07] MEDS: FUROSEMIDE INJ 40 MG/4 ML VIAL IV PUSH ×2 (13:56→20:25)
[2023-05-07] MEDS: HYDROmorphone HCL INJ (*CRX) 1 MG/ML SYR IV PUSH ×4 (14:03→23:42)
[2023-05-07 14:04] LABS: Appearance Urine Clear (Clear); Bilirubin Urine Negative (Negative); Blood Urine Negative (Negative); Color Urine Yellow (Yellow); Glucose Urine UA Negative (Negative); Ketones Urine Negative (Negative); Leukocyte Esterase Ur Negative LEU/UL (Negative); Nitrate Urine Negative (Negative); Protein Urine Negative (Negative); Specific Grav Ur 1.016 (1.001-1.035); Urobilinogen Urine 0.2 mg/dL (<2.0); pH Urine 6.5 (5.0-9.0)
[2023-05-07 14:19] LABS: Add Urine Microscopic? NO
[2023-05-07 15:01] LABS: Troponin I < 0.012 ng/mL (0.000-0.034)
--- NOTE | 2023-05-07 15:24 | PC.NURSE ---
Paula Santiago, HANDS AND DIAL INSPECTOR Hospitalist took pt off bipap while this RN was in the room. HANDS AND DIAL INSPECTOR states pt is at risk for aspiration so she wanted her off of bipap. Pt is satting 96 on RA. HANDS AND DIAL INSPECTOR states she wants pt on 2L NC for comfort.
[2023-05-07] MEDS: KETOROLAC 15 MG/ML VIAL (*BKC) IV PUSH (15:49)
--- NOTE | 2023-05-07 16:20 | ADMGEN ---
This patient, Consuelo Calix, was admitted to IMU Room 202-01. Patient/family oriented to hospital policies and general routines including ID bracelet, bed and alarms, visiting hours, pain management, procedures, bathroom and other care routines, personal items, smoking policy, room service/diet, and visiting hours. Information on how to activate the Rapid Response Team has been discussed. Patient/Family are encouraged to report perceived risks to care and to ask questions if they do not understand what they are told or what they should do.
[2023-05-07] MEDS: hydrALAZINE HCL 20 MG/ML VIAL 10 MG IV PUSH (16:52)
[2023-05-07] MEDS: LORazepam INJ (*CRX) 2 MG/ML VIAL 1 MG IV PUSH ×2 (16:53→20:46)
--- NOTE | 2023-05-07 17:27 | PM.IMHP ---
H&P: HPI History of Present Illness Date/Time: 05/07/23 17:27 Chief Complaint: Chest pain Narrative: This is a 47-year-old female patient came to the emergency room to be evaluated for chest pain the patient tells me that she has had 2 heart attacks and stents in the past. She is also complaining of chest pain increased shortness of breath. She complained of increased difficulty breathing and some posterior back pain. The patient is also complaining of abdominal pain. The patient initially was placed on BiPAP 09/07 however she became nauseated nearly vomited with the BiPAP on. The patient was taken off of the BiPAP placed back on oxygen at 2 L per nasal cannula. Blood pressure initially was 211/122. The patient was given nitro paste. Her blood pressure came down to 203/117. She was given hydralazine her blood pressure came down to 200/110. She is afebrile. Her heart rates in the 90s. A Perez catheter was placed and she is draining clear yellow urine. Chest abdominal pelvis CT was read as the following1. 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 2. Mild pulmonary edema. 3. Small fat-containing left supraumbilical ventral hernia. The patient did have a CT of the abdomen and pelvis back on 12/31/2022 with the aortic aneurysm was noted to be 4.5 cm. The patient also had a lumbar spine CT on 01/01/2023 with the following readNo acute fracture or traumatic malalignment in the lumbar spine. Severe central canal narrowing at L2-3 and L3-4. Severe bilateral neural foraminal narrowing at L5-S1. Multilevel severe degenerative disc disease. Moderate lower lumbar facet arthropathy. The patient is now telling me that she just had a at injection in her back yesterday. The patient is complaining of severe right flank pain. The patient states that she takes oxycodone at home as well as Flexeril. Patient no longer has any chest pain. Troponins are negative x2. Review of Systems Review of Systems: All systems reviewed & are unremarkable except as noted in HPI and below Constitutional: Constitutional: Reports as per HPI and Reports no additional constitutional complaints Eyes: Eyes: Reports as per HPI and Reports no additional eye complaints ENT: Reports system reviewed and no additional complaints, except as documented and Reports Normal hearing present Cardiovascular: Cardiovascular: Reports no additional cardiovascular complaints Respiratory: Respiratory: Reports no additional respiratory complaints and Reports no additional respiratory complaints Gastrointestinal: Gastrointestinal: Reports as per HPI and Reports no additional gastrointestinal complaints Musculoskeletal: Musculoskeletal: Reports no additional musculoskeletal complaints Integumentary/Breasts: Skin/Breast: Reports system reviewed and no additional complaints, except as docu and Reports as per HPI Neurologic: Reports system reviewed and no additional complaints, except as documented, Reports as per HPI and Reports Normal hearing present Psychiatric: Psychiatric: Reports no additional psychiatric complaints and Reports as per HPI Endocrine: Endocrine: Reports no additional endocrine complaints Hematologic/Lymphatic: Hematologic/Lymphatic: Reports no additional hematologic/lymphatic complaints Allergic/Immunologic: Allergic/Immunologic: Reports no additional allergic/immunologic complaints [facility] Past Medical History Medical History (Updated 05/07/23 @ 18:04 by Paula Santiago NP) Anxiety Arthritis CAD (coronary artery disease) Chest pain CHF (congestive heart failure), NYHA class I Crying Diabetes Difficulty breathing Difficulty sleeping Heartburn History of heart attack History of pancreatitis Hot flashes HTN (hypertension) Irritable Irritable bowel Joint pain Leg pain Neurogenic bladder Neuropathy Numbness RITIKA and COPD overlap syndrome Palpitations Pancreatitis Pil
[2023-05-07] MEDS: METOPROLOL TARTRATE INJ 5 MG/5 ML VIAL IV PUSH (17:54)
[2023-05-07] MEDS: METOCLOPRAMIDE HCL INJ 10 MG/2 ML VIAL 5 MG IV PUSH (19:16)
[2023-05-07] MEDS: fentaNYL CITRATE INJ (*CRX) 100 MCG/2 ML VIAL 25 MCG IV PUSH (19:18)
[2023-05-07] MEDS: FAMOTIDINE 20 MG/2 ML VIAL IV PUSH (20:25)
[2023-05-07 20:30] LABS: Glucose Point of Care 270 mg/dl (65-105)
[2023-05-07] MEDS: SCOPOLAMINE 1.5 MG PATCH TRANSDERM (21:04)
[2023-05-07] MEDS: LABETALOL HCL INJ 100 MG/20 ML VIAL 20 MG IV PUSH (23:23)
[2023-05-08] VITALS (8 sets, daily range): BP systolic 108–126; BP diastolic 64–67; PULSE 59–68; RESP 12–18; TEMP 36–36.3; O2SAT 94–100
[2023-05-08] MEDS: HYDROmorphone HCL INJ (*CRX) 1 MG/ML SYR IV PUSH ×2 (02:59→08:09)
[2023-05-08] MEDS: LORazepam INJ (*CRX) 2 MG/ML VIAL 1 MG IV PUSH (03:37)
[2023-05-08 05:10] LABS: Basophils Percent Auto 0.2 % (0.2-1.2); Eosinophils Absolute Auto 0.1 K/mm3 (0-0.3); Eosinophils Percent Auto 0.4 % (0-4.4); Hematocrit 42.5 % (37.0-47.0); Immature Granulocyte Absolute 0.03 K/mm3 (0.00-0.031); Immature Granulocyte Percent A 0.3 % (0-0.5); Lymphocytes Absolute Auto 2.42 K/mm3 (0.9-3.2); Lymphocytes Percent Auto 21.2 % (18.3-44.2); Mean Corpuscular HGB Conc 32.9 g/dl (32-36); Mean Corpuscular Hemoglobin 31.3 pg (26-34); Mean Corpuscular Volume 95.1 fl (80-100); Mean Platelet Volume 10.5 fl (7.4-10.4); Monocytes Absolute Auto 0.9 K/mm3 (0.1-0.6); Monocytes Percent Auto 7.6 % (2.6-8.5); Neutrophils Percent Auto 70.3 % (45.5-73.1); Platelet Count Result 214 k/mm3 (150-375); Red Blood Count 4.47 M/mm3 (4.2-5.4); Red Cell Distribution Width 13.1 % (11.5-14.5); White Blood Count 11.4 K/mm3 (4.5-10.0)
[2023-05-08 05:23] LABS: Hemoglobin A1C 5.9 % (<5.7)
[2023-05-08 05:26] LABS: Alanine Aminotransferase 17 U/L (6-35); Albumin Level 4.1 g/dL (3.5-5.1); Alkaline Phosphatase 71 U/L (38-126); Anion Gap 9 mmol/L (8-16); Aspartate Amino Transferase 18 U/L (14-36); Bilirubin,Total 0.6 mg/dL (0.2-1.3); Blood Urea Nitrogen 8 mg/dL (7-17); Calcium 8.4 mg/dL (8.4-10.2); Carbon Dioxide 26 mmol/L (22-30); Chloride 100 mmol/L (98-107); Estimated CRCL calculation 97 ml/min; Estimated Glomerular Filt Rate > 60; Glucose 122 mg/dL (65-110); Lactate Dehydrogenase 200 U/L (120-246); Potassium 3.3 mmol/L (3.4-5.0); Sodium 135 mmol/L (137-145)
[2023-05-08 08:09] LABS: Glucose Point of Care 88 mg/dl (65-105)
[2023-05-08] MEDS: ASPIRIN 81 MG CHEWABLE TABLET PO (10:04)
[2023-05-08] MEDS: ENOXAPARIN 40 MG/0.4 ML SYRINGE SUB-Q (10:04)
[2023-05-08] MEDS: EMPAGLIFLOZIN 10 MG TABLET PO (10:04)
[2023-05-08] MEDS: LIDOCAINE 5% PATCH 1 PATCH TRANSDERM (10:05)
[2023-05-08] MEDS: GABAPENTIN 100 MG CAPSULE PO (10:05)
[2023-05-08] MEDS: lisinopriL 20 MG TABLET 40 MG PO (10:05)
[2023-05-08] MEDS: ROSUVASTATIN 10 MG TABLET PO (10:05)
[2023-05-08] MEDS: POTASSIUM CHLORIDE 20 MEQ ER TABLET 40 MEQ PO (10:06)
--- NOTE | 2023-05-08 11:30 | PM.DS ---
DS: Admitting Diagnosis Discharge Date 05/08/2023 Admitting Diagnosis Low back pain Chest pain Hypertensive emergency DS: Discharge Diagnosis Discharge Diagnosis (1) CHF (congestive heart failure): Code(s): I50.9 - Heart failure, unspecified Status: Acute (2) Neurogenic bladder: Code(s): N31.9 - Neuromuscular dysfunction of bladder, unspecified Status: Acute (3) Cervical spondylosis with radiculopathy: Code(s): M47.22 - Other spondylosis with radiculopathy, cervical region Status: Acute (4) Hypertensive emergency: Code(s): I16.1 - Hypertensive emergency Status: Acute DS: Summary Hospital Course Hospital Course: This is a 47-year-old female patient came to the emergency room to be evaluated for chest pain and increased shortness of breath.? The patient initially was placed on BiPAP 09/07 however she became nauseated nearly vomited with the BiPAP on.? The patient was taken off of the BiPAP placed back on oxygen at 2 L per nasal cannula.? Blood pressure initially was 211/122.? The patient was given nitro paste.? Her blood pressure came down to 203/117.? She was given hydralazine her blood pressure came down to 200/110.? She is afebrile.? Her heart rates in the 90s.? A Perez catheter was placed and she is draining clear yellow urine.? Chest abdominal pelvis CT was read as the following 1. 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 2. Mild pulmonary edema. 3. Small fat-containing left supraumbilical ventral hernia. The patient also had a lumbar spine CT on 01/01/2023 with the following read: No acute fracture or traumatic malalignment in the lumbar spine. Severe central canal narrowing at L2-3 and L3-4. Severe bilateral neural foraminal narrowing at L5-S1. Multilevel severe degenerative disc disease. Moderate lower lumbar facet arthropathy. Her blood pressure has normalized now. She just had a at injection in her back yesterday.? The patient states that she takes oxycodone at home as well as Flexeril.? Patient no longer has any chest pain.? Troponins are negative x2. Chest x-ray showed mild pulmonary edema. Patient was given IV Lasix. She is currently on room air and has no crackles. Patient is medically back to baseline. Her low back is chronic and she follows up with her PCP for that. We will discharge her home with increased dose of Lasix at 40 mg p.o. b.i.d.. Continue lisinopril at home dose continue other medications at home dose. Time Spent with Patient Time attestation: Total time spent providing and/or coordinating discharge services: DS: Data Data Completed and Pending Labs on day of discharge: Labs from last 24 hours 05/08/23 05/08/23 05/07/23 07:58 04:28 20:24 WBC 11.4 H RBC 4.47 Hgb 14.0 Hct 42.5 MCV 95.1 MCH 31.3 MCHC 32.9 RDW 13.1 Plt Count 214 MPV 10.5 H Immature Gran % (Auto) 0.3 Neut % (Auto) 70.3 Lymph % (Auto) 21.2 [place] % (Auto) 7.6 Eos % (Auto) 0.4 Baso % (Auto) 0.2 Lymph # (Auto) 2.42 [place] # (Auto) 0.9 H Eos # (Auto) 0.1 Baso # (Auto) 0.0 Abs Immat Gran (auto) 0.03 Absolute Neuts (auto) 8.0 H Absolute Nucleated RBC 0.0 Nucleated RBC % 0.0 Puncture Site ABG pH ABG pCO2 ABG pO2 ABG PO2/FiO2 Ratio ABG HCO3 ABG O2 Saturation ABG O2 Content ABG Base Excess A-a Gradient Oxyhemoglobin Carboxyhemoglobin Methemoglobin Reduced Hemoglobin Total Hemoglobin O2 Delivery Device O2 Liters/Min Vent Rate FiO2 Expiratory Pressure Inspiratory Pressure Sodium 135 L Potassium 3.3 L Chloride 100 Carbon Dioxide 26 Anion Gap 9 BUN 8 Creatinine 0.70 Estim Creat Clear Calc 97 Estimated GFR > 60 Glucose 122 H POC Capillary Glucose 88 270 H Hemoglobin A1c 5.9 H Calcium 8.4 Magnesium 2.
--- NOTE | 2023-05-08 12:44 | WPDNEUROSGCN ---
Assessment and Plan Assessment and plan (1) Lumbar spondylosis: Code(s): M47.816 - Spondylosis without myelopathy or radiculopathy, lumbar region Status: Acute (2) Lumbar radiculopathy, right: Code(s): M54.16 - Radiculopathy, lumbar region Status: Acute Plan Ms. Calix is a 47-year-old female with multiple medical comorbidities including DM, CHF, CAD s/p [place] and multiple cardiac stents who has a long history of lower back and right radicular leg pain following an S1 distribution. She also has a 10+ year history of urinary retention requiring self catheterization from complications of a . She was admitted last night for hypertensive urgency, chest pain, and shortness of breath which have resolved this morning. Her lumbar symptoms are stable, and she does not have a focal deficit on exam. Her CT scan shows severe degenerative changes which appear stable to me compared to a CT in December. I had asked for MRI lumbar spine which has seemingly been cancelled as she is preparing to discharge. I do not believe this is urgent given the stability of her symptoms and lack of focal deficit; this can be completed as an outpatient. I was able to access notes from Dr. Burgess and her previous MRI lumbar spine in 2020 which showed fairly severe stenosis at that time at L3-4 and L4-5. He had offered her a lumbar fusion. From my standpoint, she could follow up with him regarding surgical options, or she is welcome to follow up with me in clinic here at [facility]. I also read through her [facility] records, however, that there is discussion of needing another angioplasty vs stent for CAD discovered on a [facility] cath in November, so it sounds like she has more pressing medical issues that would need to be addressed prior to considering surgical intervention for her lumbar spine. Consult date: 05/08/23 Reason for consult: Lumbar spondylosis HPI: Consuelo Calix is a 47 year old female with history of multiple medical comorbidities including CAD s/p [place]/stents, CHF, DM who presented to the ER yesterday with chest pain and shortness of breath. She was hypertensive to the 200s/100s in the ER and was given multiple medications with improvement in her pain. ER workup included a CTA showing severe lumbar degenerative disease for which Neurosurgery was consulted. The patient states that her pain issues have resolved this morning, and her back pain has recently been at its baseline. The patient states she has a nearly 30 year history of lower back pain radiating to the right buttock. She previously weighed about 200lbs more than she does now, and when she lost her weight, she started noticing worsening of symptoms. She has had at least several years of constant back pain radiating down the back of the right leg to the ankle which is constant and is equal in severity to her back pain. She has paresthesias in the feet. Since a 10 years ago, she has had chronic urinary issues requiring frequent self-catheterization. She currently follows with Dr. Worthy of Pain Management and receives cortisone injections every 2 weeks. She has been offered lumbar surgery twice, most recently by Dr. Burgess at [facility], but this was postponed due to her persistent smoking and recent [place] with inability to stop her ASA/Plavix at that time. She does not recall this visit or that she was supposed to follow up with him. She was apparently told by Dr. Worthy that she would not qualify for spine surgery due to her medical issues. Review of Systems Review of Systems: All systems reviewed & are unremarkable except as noted in HPI and below [facility] Past Medical History Medical History (Updated 05/08/23 @ 12:51 by Karina Thornton MD) Anxiety Arthritis CAD (coronary artery disease) Chest pain CHF (congestive heart failure), NYHA class I Crying Diabetes Difficulty breathing Difficulty sleeping Heartburn History of heart attack History of pancreatitis Hot flashes HTN (hypertension) Irrit
[2023-05-09 05:33] LABS: Glucose Point of Care 109 mg/dl (65-105)
== END 2023-05-08 12:48 | disposition home or self-care (01) ==
LOC: ANHED 13:59 → ANHIMU 17:46
PROVIDERS: Nurse Practitioner; Admitting Provider Family Medicine; Emergency Provider Emergency Medicine; Visit Provider Hospitalist
DX: I11.0 Hypertensive heart disease with heart failure (principal); I50.9 Heart failure, unspecified; N31.9 Neuromuscular dysfunction of bladder, unspecified; M47.22 Other spondylosis with radiculopathy, cervical region; I16.1 Hypertensive emergency; I25.2 Old myocardial infarction; F41.9 Anxiety disorder, unspecified; I25.10 Atherosclerotic heart disease of native coronary artery without angina pectoris; G40.909 Epilepsy, unspecified, not intractable, without status epilepticus; G47.33 Obstructive sleep apnea (adult) (pediatric); J44.9 Chronic obstructive pulmonary disease, unspecified; D72.829 Elevated white blood cell count, unspecified; R33.9 Retention of urine, unspecified; Z96.0 Presence of urogenital implants; R00.0 Tachycardia, unspecified; I71.21 Aneurysm of the ascending aorta, without rupture; K42.9 Umbilical hernia without obstruction or gangrene; J81.1 Chronic pulmonary edema; E11.40 Type 2 diabetes mellitus with diabetic neuropathy, unspecified; F17.210 Nicotine dependence, cigarettes, uncomplicated; F12.90 Cannabis use, unspecified, uncomplicated; Z79.82 Long term (current) use of aspirin; Z79.899 Other long term (current) drug therapy; Z82.49 Family history of ischemic heart disease and other diseases of the circulatory system; Z84.89 Family history of other specified conditions
CPT/HCPCS: 36415; 36600; 71275; 74174; 80053; 81003; 82375; 82805; 82948; 83036; 83050; 83615; 83735; 83880; 84443; 84484; 85025; 93005; 94002; 94640; 96372; 96374; 96375; 96376; 99285; A9270; G0378; G0379; J0360; J1170; J1650; J1885; J1940; J2060; J2405; J2765; J3010; Q9967